=== PATIENT | female | born 1980 | race Caucasian/White ===

== ENCOUNTER → 2016-06-28 | Outpatient (CLI) | payer OTHER ==
--- NOTE | 2016-06-28 09:26 | US ---
Ultrasound of the Abdomen Complete History: K 29.00, acute gastritis, are 10.11, right upper quadrant abdominal pain, R 11.0, nausea. Findings: Gallbladder: No shadowing calculi, wall thickening, or pericholecystic fluid. Common bile duct is 5 m m in diameter which is normal. Liver: Homogeneous in echogenicity and measures 18 cm in length. No definite focal lesions. Renal: Right kidney measures 10.9 x 6.5 x 5.7 CM. Left kidney measures 10.6 x 6.2 x 6.2 cm. Spleen: Homogeneous and 9.5 cm in length without splenomegaly. Pancreas: Homogeneous without peripancreatic fluid. Tail obscured by bowel gas Aorta: Visualized upper abdominal aorta demonstrates no aneurysm. IVC: Grossly patent. Impression: Normal ultrasound abdomen complete.
== END ==
LOC: BRMIMAGING 08:28
PROVIDERS: ATTEND Family Medicine
DX: R10.11 Right upper quadrant pain (principal)
CPT/HCPCS: 76700-PO